=== PATIENT | male | born 1990 | race Caucasian/White ===

== ENCOUNTER 2020-07-14 23:35 | Emergency (ER) | payer OTHER ==
[~2020-07-14] VITALS: Ht 185.4 cm; Wt 85.7 kg
[2020-07-15] MEDS ORDERED: NORFLEX100MG PO (03:35)
[2020-07-15] MEDS ORDERED: KETO10TA2 PO (03:35)
== END 2020-07-15 03:43 | disposition home or self-care (01) ==
LOC: ER 23:35
DX: M54.2 Cervicalgia (principal); M62.838 Other muscle spasm